=== PATIENT | female | born 1995 | race Caucasian/White ===

== ENCOUNTER → 2018-05-27 | Outpatient (CLI) | payer OTHER | LOC: BRMIMAGING 14:11 | PROVIDERS: ATTEND Family Medicine | DX: N83.292 Other ovarian cyst, left side (principal); E10.9 Type 1 diabetes mellitus without complications; F32.1 Major depressive disorder, single episode, moderate; L68.0 Hirsutism; Z97.5 Presence of (intrauterine) contraceptive device | CPT/HCPCS: 76856-PO ==

== ENCOUNTER 2018-07-19 20:22 | Emergency (ER) | payer OTHER ==
[2018-07-19] MEDS ORDERED: NS 1,000 ML IV ONE ×2 (20:53→22:47)
[2018-07-19] MEDS ORDERED: METOCLOPRAMIDE 10 MG/2 ML VIAL IVP ONE (20:55)
[2018-07-19] MEDS ORDERED: KETOROLAC 30 MG/1 ML SDV IVP ONE (20:55)
[2018-07-19] MEDS ORDERED: LORazepam 2 MG/ML INJ IVP ONE (20:55)
[2018-07-19 21:04] LABS: PLATELET COUNT 313 10^3/uL (150-400)
[2018-07-19] MEDS ORDERED: DEXAMETHASONE 4 MG TAB PO ONE (23:16)
--- NOTE | 2018-07-19 23:44 | EDPHY ---
H & P Stated Complaint: STARK,NAUSEA,DIAPHORETIC X 3 DAYS Time Seen by Provider: 07/19/18 20:47 HPI/ROS: Chief complaint: Headache History of present illness: This is a 23-year-old female who presents to the emergency department for evaluation of a headache. She reports the slow onset of a headache over the last few days. She has had associated fatigue and body sweats. She denies specific precipitating factors. She denies alleviating factors. She denies other associated signs or symptoms: No fevers or specific cold symptoms, no trauma, no paresthesias, weakness or paralysis or bowel or bladder dysfunction. She does not get headaches very regularly. However this headache was not thunderclap in nature. It is not the worst headache of her life. Review of systems: A 10 point review of systems was obtained and other than described above was negative - Personal History LMP (Females 10-55): IUD In Place Current Tetanus Diphtheria and Acellular Pertussis (TDAP): Yes - Medical/Surgical History Hx Asthma: Yes Hx Chronic Respiratory Disease: No Hx Diabetes: Yes Hx Cardiac Disease: No Hx Renal Disease: No Hx Cirrhosis: No Hx Alcoholism: No Hx HIV/AIDS: No Hx Splenectomy or Spleen Trauma: No Other PMH: DM II, DEPRESSION, ANXIETY, DIONNA 02/2018, APPY, 02/2013, TONSILLECTOMY , L OVARIAN CYST, OVARIAN CYST REMOVAL R OVARY,ASTHMA - Social History Smoking Status: Never smoked - Physical Exam Exam: General Appearance: Alert, nontoxic. Eyes: Pupils equal and round no pallor or injection. ENT, Mouth: Mucous membranes moist. Respiratory: There are no retractions, lungs are clear to auscultation. Cardiovascular: Regular rate and rhythm. Gastrointestinal: Abdomen is soft and non tender, no masses, bowel sounds normal. Neurological: Alert and oriented x4. Cranial nerves 2-12 grossly intact. Strength and sensation intact and symmetrical. No pronator drift. No meningismus. She is ambulating without difficulty. Skin: Warm and dry, no rashes. Musculoskeletal: Neck is supple non tender. Extremities are symmetrical, full range of motion. Psychiatric: Patient is oriented X 3, there is no agitation. Constitutional: Initial Vital Signs Temperature (C) 36.8 C 07/19/18 20:35 Heart Rate 110 H 07/19/18 20:35 Respiratory Rate 18 07/19/18 20:35 Blood Pressure 133/93 H 07/19/18 20:35 O2 Sat (%) 97 07/19/18 20:35 O2 Delivery Mode Room Air Allergies/Adverse Reactions: No Known Allergies Allergy (Unverified 07/19/18 20:33) Home Medications: Medication Instructions Recorded Colestipol HCl 07/19/18 Metformin HCl 07/19/18 Sertraline HCl 07/19/18 Victoza 3-Jayden 07/19/18 Medical Decision Making ED Course/Re-evaluation: Patient is discussed with my secondary supervising physician Dr. Arsh Jackson. Patient presents to the emergency department for a headache. Patient is nontoxic. She has a nonfocal neurologic exam. No red flag risk factors such as thunderclap in nature or worst headache of her life are identified. She is symptomatically treated, she states when she came in her headache was a 6 /10 on the pain scale, it is now resolved. She has been tachycardic in the emergency room, this has improved with IV hydration. I do not believe imaging studies are warranted at this time. She is discharged home. Home care is discussed. She is asked to follow up with the primary care doctor for recheck. Strict return precautions were given. The patient voiced understanding and agreement with plan. Differential Diagnosis: Included but not limited to migraine headache, tension headache, cluster headache, chronic daily headache, unlikely intracranial bleed or mass, although infectious is possible such as a viral syndrome, unlikely meningitis - Data Points Laboratory Results: Laboratory Results 07/19/18 20:45 07/19/18 20:45 07/19/18 07/19/18 07/19/18 21:05 20:45 20:45 WBC RBC Hgb Hct MCV MCH MCHC RDW Plt Count MPV Neut % (Auto) Lymph % (Auto) [place] % (Auto) Eos % (Auto) Baso % (Auto) Nucleat RBC Rel Count Absolute Neuts (auto) Absolute Lymphs (auto) Absolute Monos (auto) Absolute Eos (auto) Absolute Basos (auto) Absolute Nucleated RBC Immature Gran % Immature Gran # Sodium 136 mEq/L mEq/L (135-145) Potassium 3.9 mEq/L mEq/L (3.5-5.2) Chloride 100 mEq/L mEq/L (97-110) Carbon Dioxide 22 mEq/l mEq/l (22-31) Anion Gap 14 mEq/L mEq/L (6-14) BUN 13 mg/dL mg/dL (7-23) Creatinine 0.6 mg/dL mg/dL (0.6-1.0) Estimated GFR > 60 Glucose 110 mg/dL H mg/dL (70-100) Calcium 11.0 mg/dL H mg/dL (8.5-10.4) Phosphorus 5.9 mg/dL H mg/dL (2.5-4.5) Beta HCG, Qual NEGATIVE Nasal Influenza A PCR NEGATIVE FOR FLU A (NEGATIVE) Nasal Influenza B PCR NEGATIVE FOR FLU B (NEGATIVE) 07/19/18 20:45 WBC 10.81 10^3/uL H 10^3/uL (3.80-9.50) RBC 5.13 10^6/uL 10^6/uL (4.18-5.33) Hgb 16.0 g/dL g/dL (12.6-16.3) Hct 46.2 % % (38.0-47.0) MCV 90.1 fL fL (81.5-99.8) MCH 31.2 pg pg (27.9-34.1) MCHC 34.6 g/dL g/dL (32.4-36.7) RDW 12.4 % % (11.5-15.2) Plt Count 313 10^3/uL 10^3/uL (150-400) MPV 10.5 fL fL (8.7-11.7) Neut % (Auto) 63.3 % % (39.3-74.2) Lymph % (Auto) 28.2 % % (15.0-45.0) [place] % (Auto) 6.4 % % (4.5-13.0) Eos % (Auto) 1.5 % % (0.6-7.6) Baso % (Auto) 0.3 % % (0.3-1.7) Nucleat RBC Rel Count 0.0 % % (0.0-0.2) Absolute Neuts (auto) 6.85 10^3/uL H 10^3/uL (1.70-6.50) Absolute Lymphs (auto) 3.05 10^3/uL H 10^3/uL (1.00-3.00) Absolute Monos (auto) 0.69 10^3/uL 10^3/uL (0.30-0.80) Absolute Eos (auto) 0.16 10^3/uL 10^3/uL (0.03-0.40) Absolute Basos (auto) 0.03 10^3/uL 10^3/uL (0.02-0.10) Absolute Nucleated RBC 0.00 10^3/uL 10^3/uL (0-0.01) Immature Gran % 0.3 % % (0.0-1.1) Immature Gran # 0.03 10^3/uL 10^3/uL (0.00-0.10) Sodium Potassium Chloride Carbon Dioxide Anion Gap BUN Creatinine Estimated GFR Glucose Calcium Phosphorus Beta HCG, Qual Nasal Influenza A PCR Nasal Influenza B PCR Medications Given: Discontinued Medications Dexamethasone (Decadron) 10 mg PO EDNOW ONE Stop: 07/19/18 23:17 Last Admin: 07/19/18 23:30 Dose: 10 mg Diphenhydramine HCl (Benadryl Injection) 25 mg IVP EDNOW ONE Stop: 07/19/18 20:56 Last Admin: 07/19/18 21:01 Dose: 25 mg Sodium Chloride (Ns) 1,000 mls @ 0 mls/hr IV EDNOW ONE; Wide Open PRN Reason: Protocol Stop: 07/19/18 20:54 Last Admin: 07/19/18 21:01 Dose: 1,000 mls Sodium Chloride (Ns) 1,000 mls @ 0 mls/hr IV EDNOW ONE; Wide Open PRN Reason: Protocol Stop: 07/19/18 22:48 Last Admin: 07/19/18 22:59 Dose: 1,000 mls Ketorolac Tromethamine (Toradol) 15 mg IVP EDNOW ONE Stop: 07/19/18 20:56 Last Admin: 07/19/18 21:01 Dose: 15 mg Lorazepam (Ativan Injection) 1 mg IVP EDNOW ONE Stop: 07/19/18 20:56 Last Admin: 07/19/18 21:04 Dose: 1 mg Metoclopramide HCl (Reglan Injection) 10 mg IVP EDNOW ONE Stop: 07/19/18 20:56 Last Admin: 07/19/18 21:01 Dose: 10 mg Departure - Departure Disposition: Home, Routine, Self-Care Clinical Impression: Headache Condition: Good Instructions: Acute Headache (ED) Additional Instructions: Follow-up with her primary care doctor next week for recheck If her symptoms return, worsen or new symptoms develop return to the emergency department immediately for recheck Referrals: April Richardson DO [Primary Care Provider] - As per Instructions
[2018-07-19 23:52] VITALS: BP 119/79
--- NOTE | 2018-07-20 05:25 | CPEKG ---
Test Reason : OPEN Blood Pressure : / mmHG Vent. Rate : 122 BPM Atrial Rate : 123 BPM P-R Int : 140 ms QRS Dur : 087 ms QT Int : 323 ms P-R-T Axes : 044 -15 007 degrees QTc Int : 460 ms Sinus tachycardia Borderline left axis deviation Confirmed by Jossie Luis ([id number]) on 07/20/2018 5:24:28 AM Referred By: Confirmed By:Jossie Luis
== END 2018-07-19 23:52 | disposition home or self-care (01) ==
DX: R51 Headache (principal); E11.9 Type 2 diabetes mellitus without complications; F32.9 Major depressive disorder, single episode, unspecified; F41.9 Anxiety disorder, unspecified; J45.909 Unspecified asthma, uncomplicated
CPT/HCPCS: 96374; J1200; J1885; J2060; J2765

== ENCOUNTER 2018-09-02 06:44 | Day surgery (SDC) | payer OTHER ==
[2018-09-02] MEDS ORDERED: MIDAZOLAM 2 MG/2 ML VIAL IVP ONE (06:53)
[2018-09-02] MEDS ORDERED: SCOPOLAMINE HYDROBROMIDE 1 MG/3 DAYS PATCH TD ONE (06:53)
[2018-09-02] MEDS ORDERED: LR 1,000 ML IV ONE (07:28)
[2018-09-02] MEDS ORDERED: PROPOFOL 200 MG/20 ML VIAL ONE ×2 (07:40→10:26)
[2018-09-02] MEDS ORDERED: BUPIVACAINE/EPI 0.5% 30 ML SDV ONE (07:40)
[2018-09-02] MEDS ORDERED: fentaNYL 100 MCG/2 ML INJ ONE ×2 (07:40→09:40)
[2018-09-02] MEDS ORDERED: SILVER NITRATE APPLICATOR 1 APPL TP ONE (07:41)
--- NOTE | 2018-09-02 07:43 | PDANEPAE ---
ANE Past Medical History - Cardiovascular History Hx Hypertension: No Hx Arrhythmias: Yes Hx Chest Pain: No Hx Coronary Artery / Peripheral Vascular Disease: No Hx CHF / Valvular Disease: No Hx Palpitations: No Cardiovascular History Comment: slightly tachycardiac at times - Pulmonary History Hx COPD: No Hx Asthma/Reactive Airway Disease: No Hx Recent Upper Respiratory Infection: No Hx Oxygen in Use at Home: No Hx Sleep Apnea: No Sleep Apnea Screening Result - Last Documented: Negative Pulmonary History Comment: hx of exercise induced asthma- doesn't usually use rescue inhaler - Neurologic History Hx Cerebrovascular Accident: No Hx Seizures: No Hx Dementia: No Neurologic History Comment: headaches - Endocrine History Hx Diabetes: Yes Obesity: yes, mild Endocrine History Comment: type 2 - Renal History Hx Renal Disorders: No - Liver History Hx Hepatic Disorders: No - Neurological & Psychiatric Hx Hx Neurological and Psychiatric Disorders: Yes Neurological / Psychiatric History Comment: anxiety. depression - Cancer History Hx Cancer: No - Congenital Disorder History Hx Congenital Disorders: No - GI History GERD: no Hx Gastrointestinal Disorders: Yes Gastrointestinal History Comment: chronic diarrhea- worse after joe but contributes to metformin - Other Health History Other Health History: wears glasses. dry skin - Chronic Pain History Chronic Pain: No - Surgical History Prior Surgeries: joe . ovarian cystectomy 2015. appy . wisdom teeth 2009. t&a in early s ANE Review of Systems Review of Systems: - Exercise capacity METS (RN): 4 METS ANE Patient History - Allergies Allergies/Adverse Reactions: No Known Allergies Allergy (Verified 08/20/18 16:37) - Home Medications Home Medications: Colestipol HCl 07/19/18 [Last Taken 09/01/18 20:30] Metformin HCl 07/19/18 [Last Taken 08/31/18] Sertraline HCl 07/19/18 [Last Taken 09/01/18 20:30] Victoza 3-Jayden 07/19/18 [Last Taken 09/01/18 20:30] - Anes Hx Anes Hx: post operative nausea - Smoking Hx Smoking Status: Never smoked - Family Anes Hx Family Hx Anesthesia Complications: mother may be sensitive but nothing major ANE Labs/Vital Signs - Vital Signs Vital Signs: reviewed preoperatively; see RN documention for details Height: 170.18 cm Weight: 87.09 kg ANE Physical Exam - Airway Neck exam: FROM Mallampati Score: Class 1 Mouth exam: normal dental/mouth exam - Pulmonary Pulmonary: clear to auscultation - Cardiovascular Cardiovascular: regular rate and rhythym - ASA Status ASA Status: II ANE Anesthesia Plan Anesthesia Plan: general endotracheal anesthesia
[2018-09-02] MEDS ORDERED: DEXAMETHASONE 4 MG/ML VIAL ONE (07:45)
[2018-09-02] MEDS ORDERED: METOCLOPRAMIDE 10 MG/2 ML VIAL ONE (07:45)
[2018-09-02] MEDS ORDERED: ROCURONIUM 50 MG/5 ML VIAL ONE (07:45)
[2018-09-02] MEDS ORDERED: RANITIDINE 50 MG/2 ML VIAL ONE (07:47)
--- NOTE | 2018-09-02 08:09 | PDHPUP ---
History & Physical Update H&P update statement: This history and physical update is based on an assessment of the patient which was completed after admission or registration (within 24 hours), but prior to the surgery/procedure. H&P update: H&P reviewed & patient examined, no change in patient's condition since H&P completed
[2018-09-02] MEDS ORDERED: MIDAZOLAM 2 MG/2 ML VIAL ONE (08:18)
[2018-09-02] MEDS ORDERED: KETOROLAC 30 MG/1 ML SDV ONE (09:39)
[2018-09-02] MEDS ORDERED: ONDANSETRON 4 MG/2 ML VIAL ONE (09:39)
[2018-09-02] MEDS ORDERED: SUGAMMADEX SODIUM 200 MG/2 ML VIAL IVP ONE (09:54)
[2018-09-02] MEDS ORDERED: METOCLOPRAMIDE 10 MG/2 ML VIAL IVP PRN (09:55)
[2018-09-02] MEDS ORDERED: HYDROCODONE/APAP 5/325 TAB PO PRN (09:55)
[2018-09-02] MEDS ORDERED: MEPERIDINE 25 MG/0.5 ML AMP IVP PRN (09:55)
[2018-09-02] MEDS ORDERED: fentaNYL 100 MCG/2 ML INJ IVP PRN (09:55)
[2018-09-02] MEDS ORDERED: DIAZEPAM 5 MG/ML 1 ML SYR IVP PRN (09:55)
[2018-09-02] MEDS ORDERED: LABETALOL HCL 5 MG/ML 20 ML MDV IVP PRN (09:55)
[2018-09-02] MEDS ORDERED: ALBUTEROL 3 ML DEYVIAL IH PRN (09:55)
[2018-09-02] MEDS ORDERED: oxyCODONE IR 5 MG TAB PO PRN ×2 (09:55→11:09)
[2018-09-02] MEDS ORDERED: HYDROmorphONE/DILAUDID 2 MG/ML INJ IVP PRN (09:55)
[2018-09-02] MEDS ORDERED: NALOXONE HCL 0.4 MG/ML INJ IVP PRN (09:55)
[2018-09-02] MEDS ORDERED: ONDANSETRON 4 MG/2 ML VIAL IVP PRN (09:55)
[2018-09-02] MEDS ORDERED: LR 500 ML IV PRN (09:55)
[2018-09-02] MEDS ORDERED: PROMETHAZINE HCL 25 MG/ML INJ IVP PRN (09:55)
--- NOTE | 2018-09-02 11:03 | POSTOPPROG ---
Post Op Note Date of Operation: 09/02/18 Surgeon: Madison Vallecillo Soil Field Technician: GLADYS Koch and Paige Lindsey DO Anesthesiologist: Carol Lindo MD Anesthesia: GET(General Endotracheal) Pre-op Diagnosis: left ovarian cyst, desires IUD replacement Post-op Diagnosis: same Indication: 23 G0 with persistent complex left ovarian cyst Procedure: IUD removal, laparoscopic left ovarian cystectomy, insertion of IUD Findings: left dermoid cyst, absent appendix, normal uterus, tubes, right ovary Inf/Abcess present in the surg proc area at time of surgery?: No EBL: 50-100 Total fluids administered: 500 Complications: none Specimen(s): left ovarian dermoid cyst
[2018-09-02] MEDS ORDERED: oxyCODONE IR 5 MG TAB ONE (11:18)
--- NOTE | 2018-09-02 11:53 | GOP ---
[f rep st] OPERATIVE REPORT DATE OF OPERATION: 09/02/2018 SURGEON: Madison Vallecillo MD INDUCTION HEATING EQUIPMENT SETTER: GLADYS Guerrero, and Paige Lindsey DO, both needed for adequate exposure and operation of laparoscopic instruments. ANESTHESIA: General endotracheal. ANESTHESIOLOGIST: Belgica Medina MD PREOPERATIVE DIAGNOSIS: 1. Complex left ovarian cyst. 2. Desires intrauterine device replacement. POSTOPERATIVE DIAGNOSIS: 1. Complex left ovarian cyst. 2. Desires intrauterine device replacement. PROCEDURE PERFORMED: 1. Laparoscopic left ovarian cystectomy. 2. Removal of Mirena IUD and insertion of a new one. FINDINGS: Left ovarian dermoid cyst containing hair, fat and sebum. Absent appendix. The staple line was visible from where the appendix had been removed. Normal uterus, tubes, and right ovary. ESTIMATED BLOOD LOSS: 50 mL. INDICATIONS: 23-year-old 0 with persistent left complex ovarian cyst, dermoid suspected. DESCRIPTION OF PROCEDURE: Written informed consent had been obtained in the office and was reviewed in the preoperative area. All questions were answered. The patient was taken to the operating room and placed in the dorsal supine position. General anesthesia was deemed adequate. She was placed in modified dorsal lithotomy position using the Yellofin stirrups. Her abdomen and vagina and perineum were prepared and draped in the standard fashion. A speculum was inserted into the vagina. A tenaculum was placed on the anterior lip of the cervix. The IUD strings were grasped and the IUD was removed. An acorn cannula was inserted into the cervix and fastened to the tenaculum. The speculum was removed. Gloves were changed and attention was turned to the abdomen. 10 ml of 0.5% Marcaine with epinephrine was infiltrated into the infraumbilical area. An incision was made vertically and taken down sharply to the fascia. The fascia was grasped with Ruben clamps, elevated and incised. Entrance into the peritoneum occurred bluntly. A pursestring suture of 0 Vicryl was placed around the fascial opening. A balloon Tomás trocar was inserted. Camera confirmed entrance into the peritoneum. The abdomen was insufflated. The patient was placed in Trendelenburg position. Right and left lower ports were inserted in a similar fashion under direct visualization after the infiltration of local anesthetic. Combination of blunt probe and graspers were used to explore the abdomen with the above findings. Sharp and blunt lysis of adhesions in the left lower quadrant, of the bowel from the left pelvic sidewall was performed, in order to fully expose the left ovary with cyst. The left ovary was then elevated and the laparoscopic scissors were used with cautery to incise over a portion of the cyst. A combination of blunt and sharp dissection was used to peel the cyst wall away from the cyst. The cyst itself was then grasped and twisted to dissect away from the remaining normal ovary. During this process, the cyst did rupture, leaking some of the contents. Careful suction irrigation were performed to decrease the leakage. Once the entire cyst was removed, the cameras were changed so a 5mm camera was put in the left port, an EndoCatch bag was put in the central 10mm port, and a grasper was used to elevate the cyst and place it into the EndoCatch bag. The cyst in its entirety was removed from the abdomen. The camera was again changed. Copious irrigation and suction were performed. Then cautery was used over the base of the cyst using the hook in order to obtain hemostasis. Isrrael was then also applied to the cyst base in the ovary. Survey of the abdomen revealed excellent hemostasis throughout. The abdomen was desufflated and the operative sites still appeared hemostatic. The right and left trocars were removed under direct visualization. The abdomen continued to be desufflated and then the umbilical trocar was also removed. The fascia at the umbilical site was closed using that pursestring suture. The skin was closed with 4-0 Monocryl in a subcuticular fashion. The 5 mm skin incisions were closed with Dermabond and Dermabond was also used to cover the infraumbilical incision. Attention was then turned to the vagina. The acorn cannula was then removed. The uterus sounded to 7 cm. A new Mirena IUD was inserted in the standard fashion and the strings were trimmed at 2 cm. The tenaculum was removed and direct pressure obtained hemostasis of the tenaculum sites. The lot number for the Mirena IUD was [id number]. All instruments were removed from the vagina. Sponge, lap, and needle counts were correct x2. The patient was extubated in the operating room and taken to the recovery room in stable condition. TOTAL IV FLUIDS ADMINISTERED: 500 mL. COMPLICATIONS: None. /[id number]/MODL MTDD
--- NOTE | 2018-09-02 12:06 | POSTANESTH ---
Post Anesthetic Evaluation Cardiovascular Status: Normal, Stable Respiratory Status: Normal, Stable Level of Consciousness/Mental Status: Can Participate in Eval, Mildly Sleepy, Arousable Pain Control: Adequate, Prn Tx Ordered Nausea/Vomiting Control: Adequate, Prn Tx Ordered Complications Possibly Related to Anesthesia: None Noted
[2018-09-02 12:42] VITALS: BP 125/94
== END 2018-09-02 12:51 | disposition home or self-care (01) ==
LOC: FSGY 06:44
PROVIDERS: ATTEND Hospitalist
DX: D27.1 Benign neoplasm of left ovary (principal); Z30.433 Encounter for removal and reinsertion of intrauterine contraceptive device; E11.9 Type 2 diabetes mellitus without complications; F32.9 Major depressive disorder, single episode, unspecified; F41.9 Anxiety disorder, unspecified
CPT/HCPCS: J1100; J1885; J2250; J2405; J2704; J2765; J2780; J3010

== ENCOUNTER 2018-10-09 12:32 | Emergency (ER) | payer OTHER ==
[2018-10-09] MEDS ORDERED: NS 1,000 ML IV ONE (13:09)
[2018-10-09] MEDS ORDERED: KETOROLAC 30 MG/1 ML SDV IVP ONE (13:17)
[2018-10-09] MEDS ORDERED: ONDANSETRON 4 MG/2 ML VIAL IVP ONE (13:17)
--- NOTE | 2018-10-09 13:20 | EDPHY ---
H & P Stated Complaint: N/V/D since saturday Time Seen by Provider: 10/09/18 12:50 HPI/ROS: CHIEF COMPLAINT: Nausea, vomiting, diarrhea, abdominal pain HISTORY OF PRESENT ILLNESS: Patient presents the ED with intractable nausea, vomiting, diarrhea and abdominal pain. The patient's symptoms began Saturday. She does have a history of chronic intermittent vomiting and diarrhea. She had her gallbladder removed last February. She also had a recent left ovarian cyst removed. The patient denies any recent antibiotic use. She denies any recent travel outside the [place]. She denies any hematemesis or melena. The patient has taken Zofran at home without improvement of symptoms. She complains of generalized abdominal pain. REVIEW OF SYSTEMS: A comprehensive 10 point review of systems is otherwise negative aside from elements mentioned in the history of present illness. Source: Patient Exam Limitations: No limitations - Personal History LMP (Females 10-55): IUD In Place Current Tetanus Diphtheria and Acellular Pertussis (TDAP): Yes - Medical/Surgical History Hx Asthma: Yes Hx Chronic Respiratory Disease: No Hx Diabetes: Yes Hx Cardiac Disease: No Hx Renal Disease: No Hx Cirrhosis: No Hx Alcoholism: No Hx HIV/AIDS: No Hx Splenectomy or Spleen Trauma: No Other PMH: DM II, DEPRESSION, ANXIETY, DIONNA 02/2018, APPY, 02/2013, TONSILLECTOMY , L OVARIAN CYST, OVARIAN CYST REMOVAL R OVARY,ASTHMA - Social History Smoking Status: Never smoked - Physical Exam Exam: General Appearance: Alert, no distress Eyes: Pupils equal and round no pallor or injection ENT, Mouth: Mucous membranes moist Respiratory: There are no retractions, lungs are clear to auscultation Cardiovascular: Regular rate and rhythm Gastrointestinal: Minimal hypogastric tenderness, normal bowel sounds, no peritoneal signs Neurological: 5/5 strength noted all 4 extremities Skin: Warm and dry, no rashes Musculoskeletal: Neck is supple nontender Extremities: symmetrical, full range of motion Psychiatric: Patient is oriented X 3, there is no agitation Constitutional: Initial Vital Signs Temperature (C) 36.5 C 10/09/18 12:36 Heart Rate 125 H 10/09/18 12:36 Respiratory Rate 18 10/09/18 12:36 Blood Pressure 140/93 H 10/09/18 12:36 O2 Sat (%) 97 10/09/18 12:36 O2 Delivery Mode Room Air Allergies/Adverse Reactions: No Known Allergies Allergy (Verified 10/09/18 12:34) Home Medications: Medication Instructions Recorded Colestipol HCl 07/19/18 Metformin HCl 07/19/18 Sertraline HCl 07/19/18 Victoza 3-Jayden 07/19/18 Dicyclomine [Bentyl 20 MG (*)] 20 mg PO QID PRN #20 tab 10/09/18 Fioricet (*) 10/09/18 Promethazine HCl [Phenergan 25mg 25 mg PO TID PRN #20 tab 10/09/18 (*)] Zofran 10/09/18 Medical Decision Making ED Course/Re-evaluation: The patient presents the ED with symptoms most consistent with a viral gastroenteritis. She has minimal abdominal tenderness without peritoneal signs. The patient had an IV established. She received a L of normal saline. She received IV Zofran. She received 30 mg of Toradol. The patient's CBC is normal. Serum chemistries demonstrate no evidence of an acute abnormality. She has no evidence of an obstructive biliary pathology based upon lab testing. I re-evaluated the patient at 2:30 p.m.. I find her abdominal examination to be benign. The patient has been having intermittent symptoms of vomiting and diarrhea for some time. She is actually scheduled to see [facility]enterology of the [facility] this . It is certainly possible she is developing irritable bowel syndrome. She tells me that her sisters currently being evaluated for Crohn's disease. Her grandmother had a history of the disease as well. The patient will be given a prescription for Bentyl. I will switch her to Phenergan. I have also advised her to use Imodium. The patient is discharged home with customary aftercare instructions and return precautions. Differential Diagnosis: Differential diagnosis considered includes gastroenteritis, peptic ulcer disease , dehydration, metabolic derangement - Data Points Laboratory Results: Laboratory Results 10/09/18 13:05 10/09/18 13:05 10/09/18 10/09/18 13:05 13:05 WBC 7.38 10^3/uL 10^3/uL (3.80-9.50) RBC 5.15 10^6/uL 10^6/uL (4.18-5.33) Hgb 16.1 g/dL g/dL (12.6-16.3) Hct 45.8 % % (38.0-47.0) MCV 88.9 fL fL (81.5-99.8) MCH 31.3 pg pg (27.9-34.1) MCHC 35.2 g/dL g/dL (32.4-36.7) RDW 13.4 % % (11.5-15.2) Plt Count 312 10^3/uL 10^3/uL (150-400) MPV 10.7 fL fL (8.7-11.7) Neut % (Auto) 54.5 % % (39.3-74.2) Lymph % (Auto) 35.6 % % (15.0-45.0) [place] % (Auto) 6.5 % % (4.5-13.0) Eos % (Auto) 2.6 % % (0.6-7.6) Baso % (Auto) 0.5 % % (0.3-1.7) Nucleat RBC Rel Count 0.0 % % (0.0-0.2) Absolute Neuts (auto) 4.02 10^3/uL 10^3/uL (1.70-6.50) Absolute Lymphs (auto) 2.63 10^3/uL 10^3/uL (1.00-3.00) Absolute Monos (auto) 0.48 10^3/uL 10^3/uL (0.30-0.80) Absolute Eos (auto) 0.19 10^3/uL 10^3/uL (0.03-0.40) Absolute Basos (auto) 0.04 10^3/uL 10^3/uL (0.02-0.10) Absolute Nucleated RBC 0.00 10^3/uL 10^3/uL (0-0.01) Immature Gran % 0.3 % % (0.0-1.1) Immature Gran # 0.02 10^3/uL 10^3/uL (0.00-0.10) Sodium 138 mEq/L mEq/L (135-145) Potassium 3.9 mEq/L mEq/L (3.5-5.2) Chloride 101 mEq/L mEq/L (97-110) Carbon Dioxide 20 mEq/l L mEq/l (22-31) Anion Gap 17 mEq/L H mEq/L (6-14) BUN 7 mg/dL mg/dL (7-23) Creatinine 0.5 mg/dL L mg/dL (0.6-1.0) Estimated GFR > 60 Glucose 123 mg/dL H mg/dL (70-100) Calcium 10.0 mg/dL mg/dL (8.5-10.4) Total Bilirubin 1.1 mg/dL mg/dL (0.1-1.4) Conjugated Bilirubin 0.6 mg/dL H mg/dL (0.0-0.5) Unconjugated Bilirubin 0.5 mg/dL mg/dL (0.0-1.1) AST 46 IU/L IU/L (14-46) ALT 53 IU/L H IU/L (9-52) Alkaline Phosphatase 69 IU/L IU/L (38-126) Total Protein 8.8 g/dL H g/dL (6.3-8.2) Albumin 5.4 g/dL H g/dL (3.5-5.0) Lipase 77 IU/L IU/L (23-300) Medications Given: Discontinued Medications Sodium Chloride (Ns) 1,000 mls @ 0 mls/hr IV EDNOW ONE; Wide Open PRN Reason: Protocol Stop: 10/09/18 13:10 Last Admin: 10/09/18 13:10 Dose: 1,000 mls Ketorolac Tromethamine (Toradol) 30 mg IVP EDNOW ONE Stop: 10/09/18 13:18 Last Admin: 10/09/18 13:47 Dose: 30 mg Ondansetron HCl (Zofran) 4 mg IVP EDNOW ONE Stop: 10/09/18 13:18 Last Admin: 10/09/18 13:47 Dose: 4 mg Departure - Departure Disposition: Home, Routine, Self-Care Clinical Impression: Gastroenteritis Condition: Good Instructions: Gastroenteritis (ED) Additional Instructions: 1. Phenergan as needed for nausea and vomiting. 2. Please begin Imodium as directed which is available [id number] for control of your diarrhea. 3. Take Ibuprofen or Motrin 600 mg by mouth three times a day. 4. The laboratory testing today demonstrates no evidence of a stone in your bile duct or critical abnormality. 5. Bentyl as needed for crampy abdominal pain. 6. Follow up with Gastroenterology as scheduled on . Referrals: SHIVANI OROZCO [Other] - As per Instructions Prescriptions: Dicyclomine [Bentyl 20 MG (*)] 20 mg PO QID PRN #20 tab PRN Reason: for pain Promethazine HCl [Phenergan 25mg (*)] 25 mg PO TID PRN #20 tab PRN Reason: for nausea
[2018-10-09 13:24] LABS: PLATELET COUNT 312 10^3/uL (150-400)
[2018-10-09 14:51] VITALS: BP 125/93
== END 2018-10-09 14:51 | disposition home or self-care (01) ==
DX: K52.9 Noninfective gastroenteritis and colitis, unspecified (principal); E86.9 Volume depletion, unspecified; E11.9 Type 2 diabetes mellitus without complications; F32.9 Major depressive disorder, single episode, unspecified; F41.9 Anxiety disorder, unspecified; Z90.49 Acquired absence of other specified parts of digestive tract; Z97.5 Presence of (intrauterine) contraceptive device
CPT/HCPCS: 96374; J1885; J2405

== ENCOUNTER 2018-11-10 13:25 | Day surgery (SDC) | payer OTHER ==
[2018-11-10] MEDS ORDERED: LR 1,000 ML IV ONE (13:34)
[2018-11-10] MEDS ORDERED: PROPOFOL/EMULSION 500 MG/50 ML BOTTLE IV ONE ×2 (15:19→15:44)
[2018-11-10] MEDS ORDERED: MIDAZOLAM 2 MG/2 ML VIAL ONE (15:20)
[2018-11-10] MEDS ORDERED: ALBUTEROL 3 ML DEYVIAL IH PRN (15:24)
[2018-11-10] MEDS ORDERED: NALOXONE HCL 0.4 MG/ML INJ IVP PRN (15:24)
[2018-11-10] MEDS ORDERED: fentaNYL 100 MCG/2 ML INJ IVP PRN (15:24)
[2018-11-10] MEDS ORDERED: ONDANSETRON 4 MG/2 ML VIAL IVP PRN (15:24)
[2018-11-10] MEDS ORDERED: LR 500 ML IV PRN (15:24)
[2018-11-10] MEDS ORDERED: PROMETHAZINE HCL 25 MG/ML INJ IVP PRN (15:24)
--- NOTE | 2018-11-10 15:24 | PDANEPAE ---
ANE Past Medical History - Cardiovascular History Hx Hypertension: No Hx Arrhythmias: Yes Hx Chest Pain: No Hx Coronary Artery / Peripheral Vascular Disease: No Hx CHF / Valvular Disease: No Hx Palpitations: No Cardiovascular History Comment: slightly tachycardiac at times - Pulmonary History Hx COPD: No Hx Asthma/Reactive Airway Disease: No Hx Recent Upper Respiratory Infection: No Hx Oxygen in Use at Home: No Hx Sleep Apnea: No Sleep Apnea Screening Result - Last Documented: Negative Pulmonary History Comment: hx of exercise induced asthma- doesn't usually use rescue inhaler - Neurologic History Hx Cerebrovascular Accident: No Hx Seizures: No Hx Dementia: No Neurologic History Comment: headaches - Endocrine History Hx Diabetes: Yes Endocrine History Comment: type 2 - Renal History Hx Renal Disorders: No - Liver History Hx Hepatic Disorders: No - Neurological & Psychiatric Hx Hx Neurological and Psychiatric Disorders: Yes Neurological / Psychiatric History Comment: anxiety. depression - Cancer History Hx Cancer: No - Congenital Disorder History Hx Congenital Disorders: No - GI History Hx Gastrointestinal Disorders: Yes Gastrointestinal History Comment: chronic diarrhea- worse after joe but contributes to metformin - Other Health History Other Health History: wears glasses. dry skin - Chronic Pain History Chronic Pain: No - Surgical History Prior Surgeries: 09.02.18 lap left ovarian cystectomy with [place]. joe . ovarian cystectomy 2016. appy . wisdom teeth 2009. t&a in early ANE Review of Systems Review of Systems: - Exercise capacity METS (RN): 4 METS ANE Patient History - Allergies Allergies/Adverse Reactions: No Known Allergies Allergy (Verified 10/31/18 09:22) - Home Medications Home Medications: Colestipol HCl 07/19/18 [Last Taken 09/01/18 20:30] Metformin HCl HS 07/19/18 [Last Taken 08/31/18] Sertraline HCl 07/19/18 [Last Taken 09/01/18 20:30] Victoza 3-Jayden 07/19/18 [Last Taken 09/01/18 20:30] - NPO status NPO Since - Liquids (Date): 11/09/18 NPO Since - Liquids (Time): 16:30 NPO Since - Solids (Date): 11/09/18 NPO Since - Solids (Time): 08:00 - Smoking Hx Smoking Status: Never smoked - Family Anes Hx Family Hx Anesthesia Complications: mother may be sensitive but nothing major ANE Labs/Vital Signs - Vital Signs Blood Pressure: 121/77 Heart Rate: 101 Respiratory Rate: 15 O2 Sat (%): 96 Height: 170.18 cm Weight: 87.09 kg ANE Physical Exam - Airway Neck exam: FROM Mallampati Score: Class 1 Mouth exam: normal dental/mouth exam - Pulmonary Pulmonary: no respiratory distress, no rales or rhonchi, clear to auscultation - Cardiovascular Cardiovascular: regular rate and rhythym, no murmur, rub, or gallop - ASA Status ASA Status: II ANE Anesthesia Plan Anesthesia Plan: GA with mask
[2018-11-10] MEDS ORDERED: INDOMETHACIN 50 MG SUPP PR PRN (15:31)
--- NOTE | 2018-11-10 15:31 | PDGENHP ---
History & Physical Chief Complaint: chronic nausea, diarrhea, melena History of Present Illness: 23 year old female presents for evaluation of diarrhea, abdominal pain, and nausea. Pertinent Past, Social, Family History: PMhx; depression. PSurgHx: CCY Relevant Physical Exam: HEENT: anicteric. CV: RRR +s1s2. Lungs: CTAB. Abd: soft, nt, + bs Cardiorespiratory Assessment: ASA 2
[2018-11-10] MEDS ORDERED: NS 500 ML IV SCH (15:45)
--- NOTE | 2018-11-10 16:16 | GIREPORT ---
[facility] - Endoscopy Department Patient Name: Summer Ruiz Procedure Date: 11/10/2018 3:20 PM Patient Type: Outpatient Attending MD/ ER Physician: Chris Osuna MD Procedure: Upper EUS Indications: Generalized abdominal pain, Anorexia, Diarrhea, Nausea with vomiting, W eight loss Patient Profile: 23 year old female presents for evaluation of generalized abdomnal pain , anorexia, diarrhea, nausea, vomiting, and weight loss. Providers: Chris Osuna MD Medicines: Monitored Anesthesia Care Complications: No immediate complications. Estimated blood loss: Minimal. Description of Procedure: After obtaining informed consent, the endoscope was passed under direct vision. Throughout the procedure, the patient's blood pressure, pulse, and oxygen saturations were monitored continuously. The Endoscope was intro duced through the mouth, and advanced to the second part of duodenum. The Endosonoscope was introduced through the mouth, and advanced to the sec ond part of duodenum. The esophagus, stomach, and duodeunum were visualized endosonographically. The upper EUS was accomplished without difficulty. The patient tolerated the procedure well. Findings: ENDOSCOPIC FINDING: : The examined esophagus was normal. A hiatal hernia was present. Patchy mildly erythematous mucosa was found in the entire examined stom ach. Biopsies were taken with a cold forceps for histology. The examined duodenum was normal. Biopsies for histology were taken wit h a cold forceps for evaluation of celiac disease. ENDOSONOGRAPHIC FINDING: : There was no sign of significant endosonographic abnormality in the com mon bile duct. There was no sign of significant endosonographic abnormality in the visualized portion of the liver. Pancreatic parenchymal abnormalities were noted in the entire pancreas. These consisted of hyperechoic foci. No lymphadenopathy seen. Estimated Blood Loss: Estimated blood loss was minimal. Post Op Diagnosis: - Normal esophagus. - Erythematous mucosa in the stomach. Biopsied. - Normal examined duodenum. Biopsied. - There was no sign of significant pathology in the common bile duct. - There was no evidence of significant pathology in the visualized port ion of the liver. - Pancreatic parenchymal abnormalities consisting of hyperechoic foci w ere noted in the entire pancreas. - Etiology? No obvious cause of symptoms. No choleocholithiasis noted. No evidence of chronic pancreatitis. Awaiy biopsy results. Consider trial of PPI. Recommendation: - Perform a colonoscopy today. - Await path results. - Thank you for allowing me to participate in the care of your patient. Attending Participation: I personally performed the entire procedure. Chris Osuna MD Chris Osuna MD 11/10/2018 4:15:49 PM This report has been signed electronicallyChris Osuna MD Number of Addenda: 0 Note Initiated On: 11/10/2018 3:20 PM [email or web address]
--- NOTE | 2018-11-10 16:19 | GIREPORT ---
[facility] - Endoscopy Department Patient Name: Summer Ruiz Procedure Date: 11/10/2018 3:21 PM Patient Type: Outpatient Attending MD/ ER Physician: Chris Osuna MD Procedure: Colonoscopy Indications: Abdominal pain, Chronic diarrhea Patient Profile: 23 year old female presents for evaluation of chronic diarrhea/generali zed abdominal pain. Her pain is improved. Providers: Chris Osuna MD Medicines: Monitored Anesthesia Care Complications: No immediate complications. Estimated blood loss: Minimal. Description of Procedure: After obtaining informed consent, the scope was passed under direct vis ion. Throughout the procedure, the patient's blood pressure, pulse, and oxyg en saturations were monitored continuously. The Colonoscope with irrigatio n channel was introduced through the anus and advanced to the terminal il eum. The colonoscopy was performed without difficulty. The patient tolerated the procedure well. The quality of the bowel preparation was good. The term inal ileum, ileocecal valve, appendiceal orifice, and rectum were photograph ed. Findings: The perianal and digital rectal examinations were normal. Pertinent negatives include no palpable rectal lesions. The terminal ileum appeared normal. The colon (entire examined portion) appeared normal. Biopsies for histo logy were taken with a cold forceps for evaluation of microscopic colitis. Estimated Blood Loss: Estimated blood loss was minimal. Post Op Diagnosis: - The examined portion of the ileum was normal. - The entire examined colon is normal. Biopsied. Recommendation: - Discharge patient to home (with escort). - The signs and symptoms of potential delayed complications were discus sed with the patient. - Patient has a contact number available for emergencies. - Return to normal activities tomorrow. - Resume previous diet. - Continue present medications. - Await pathology results. - Repeat colonoscopy at age 48 for screening purposes. - Return to GI office in 4 weeks. - Thank you for allowing me to participate in the care of your patient. Attending Participation: I personally performed the entire procedure. Chris Osuna MD Chris Osuna MD 11/10/2018 4:18:36 PM This report has been signed electronicallyChris Osuna MD Number of Addenda: 0 Note Initiated On: 11/10/2018 3:21 PM Total Procedure Duration Time 0 hours 14 minutes 7 seconds [email or web address]
[2018-11-10 17:54] VITALS: BP 117/84
--- NOTE | 2018-11-11 15:36 | POSTANESTH ---
Post Anesthetic Evaluation Cardiovascular Status: Normal, Stable, Similar to Pre-Op Cond Respiratory Status: Normal, Stable, Similar to Pre-op Cond. Level of Consciousness/Mental Status: Moderately Sleepy Pain Control: Adequate, Prn Tx Ordered Nausea/Vomiting Control: Adequate, Prn Tx Ordered Complications Possibly Related to Anesthesia: None Noted
== END 2018-11-10 17:50 | disposition home or self-care (01) ==
LOC: FSGY 13:25
PROVIDERS: ATTEND Internal Medicine Gastroenterology
PROC: 0DB98ZX Excision of Duodenum, Via Natural or Artificial Opening Endoscopic, Diagnostic (ICD-10-PCS; principal; 2018-11-10 14:45)
PROC: 0DBE8ZX Excision of Large Intestine, Via Natural or Artificial Opening Endoscopic, Diagnostic (ICD-10-PCS; principal; 2018-11-10 14:45)
PROC: 0DB68ZX Excision of Stomach, Via Natural or Artificial Opening Endoscopic, Diagnostic (ICD-10-PCS; principal; 2018-11-10 14:45)
DX: K29.30 Chronic superficial gastritis without bleeding (principal); R11.2 Nausea with vomiting, unspecified; R19.7 Diarrhea, unspecified; F32.9 Major depressive disorder, single episode, unspecified
CPT/HCPCS: J2250; J2704

== ENCOUNTER → 2019-01-13 | Outpatient (CLI) | payer OTHER | LOC: FIMAGING 08:36 ==